=== PATIENT | female | born 1955 | race Caucasian/White ===

== ENCOUNTER 2016-06-29 18:41 | Emergency (ER) | payer MEDICAID ==
[~2016-06-29] VITALS: Ht 157.5 cm; Wt 63.5 kg
[2016-06-29 18:58] VITALS: BP 136/84; PULSE 85; RESP 18; TEMP 98.3; O2SAT 97
--- NOTE | 2016-06-29 19:53 | NUR ---
Patient to ER bed 08 to gown for evaluation. Side rails up. Report given to Mass
--- NOTE | 2016-06-29 19:55 | NUR ---
Patient arrived to ED a/o x 4 with c/o SOLORIO x 2 months. Patient reports having splitting headaches that have gradually increased in severity prompting ED visit. Reports pain 8/10. Took tylenol at home for pain management with no relief. Denies N/V. Denies blurred vision. Reports unsteady gait x 1 week with no fall. Patient appears in acute discomfort. Will continue to monitor.
--- NOTE | 2016-06-29 20:04 | NUR ---
ER REDDY Ortiz assessing pt.
[2016-06-29] MEDS ORDERED: NACL 0.9% 500 ML IV ONE (20:30)
[2016-06-29] MEDS ORDERED: MORPHINE 4 MG/ML INJ. SYRINGE IVP ONE (20:30)
[2016-06-29] MEDS ORDERED: ONDANSETRON HCL 4 MG/2 ML VIAL IVP ONE (20:30)
[2016-06-29 20:46] LABS: BASOPHILS # (AUTO) 0.1 K/uL (0.0-0.2); BASOPHILS % (AUTO) 1.1 % (0.0-2.0); EOSINOPHILS # (AUTO) 0.1 K/uL (0.0-0.4); EOSINOPHILS % (AUTO) 1.6 % (0.0-4.0); HEMATOCRIT 40.8 % (36-48); HEMOGLOBIN 13.5 g/dL (12.0-16.0); LYMPHOCYTES # (AUTO) 2.2 K/uL (1.0-5.5); LYMPHOCYTES % (AUTO) 27.2 % (20.5-51.5); MEAN CORPUSCULAR HEMOGLOBIN 28 pg (27-31); MEAN CORPUSCULAR HGB CONC 33 % (32-36); MEAN CORPUSCULAR VOLUME 85 fL (79.0-98.0); MONOCYTES # (AUTO) 0.6 K/uL (0.0-1.0); MONOCYTES % (AUTO) 7.3 % (1.7-9.3); NEUTROPHILS # (AUTO) 5.1 K/uL (1.8-7.7); NEUTROPHILS % (AUTO) 62.8 % (40.0-70.0); PLATELET COUNT (AUTO) 261 K/uL (130-430); RED BLOOD CELL COUNT(AUTO) 4.77 MIL/uL (4.2-6.2); RED CELL DISTRIBUTION WIDTH 13.2 % (9.0-15.0); WHITE BLOOD COUNT (AUTO) 8.1 K/uL (4.8-10.8)
[2016-06-29 20:57] LABS: CALCIUM 8.4 mg/dL (8.4-11.0); CREATININE 0.79 mg/dL (0.55-1.30)
[2016-06-29 21:04] LABS: TOTAL BILIRUBIN 0.1 mg/dL (0.0-1.0)
[2016-06-29 21:05] LABS: ALBUMIN 3.6 g/dL (3.4-4.8); TOTAL PROTEIN, SERUM 6.6 g/dL (6.4-8.3)
[2016-06-29] MEDS ORDERED: chlorproMAZINE HCL 50 MG/ 2 ML AMP IVP ONE (21:15)
[2016-06-29] MEDS ORDERED: DIPHENHYDRAMINE INJ 50 MG/ML VIAL IVP ONE (21:15)
[2016-06-29 21:23] LABS: BILIRUBIN,URINE NEGATIVE (NEGATIVE); BLOOD, URINE 2+ (NEGATIVE); CLARITY/URINE SL CLOUDY (CLEAR); COLOR,URINE YELLOW (YELLOW); GLUCOSE,URINE NEGATIVE (NEGATIVE); KETONES,URINE NEGATIVE (NEGATIVE); LEUKOCYTE ESTERASE ,URINE 1+ (NEGATIVE); NITRITE, URINE POSITIVE (NEGATIVE); PH,URINE 5.5 (5.0-8.0); PROTEIN URINE NEGATIVE (NEGATIVE); UROBILINOGEN,URINE 0.2 (0.2-1.0)
[2016-06-29 21:42] LABS: METHAMPHETAMINES SCREEN,URINE POSITIVE (NEG <=500)
[2016-06-29 21:43] LABS: BARBITURATE, URINE NEGATIVE (NEG <=200); BENZODIAZEPINE, URINE NEGATIVE (NEG <=150); CANNABINOID, URINE NEGATIVE (NEG <=50); COCAINE, URINE NEGATIVE (NEG <=150); OPIATE, URINE POSITIVE (NEG <=100); PHENCYCLIDINE SCREEN,URINE NEGATIVE (NEG <=25); UR TRICYCLIC ANTIDEPRESSANTS NEGATIVE (NEG <=300); URINE AMPHETAMINE POSITIVE (NEG <=500); URINE METHADONE NEGATIVE (NEG <=200); URINE OXYCODONE SCREEN NEGATIVE (NEG <=100); URINE PROPOXYPHENE SCREEN NEGATIVE (NEG <=300)
[2016-06-29 21:49] LABS: RBC,URINE 0-3 /HPF (0-3)
[2016-06-29 21:50] LABS: BACTERIA,URINE MANY /HPF (None Seen); MUCUS,URINE None Seen /LPF (None Seen); WBC,URINE 50-80 /HPF (0-3)
[2016-06-29 22:13] VITALS: BP 142/89; PULSE 80; RESP 18; TEMP 98.3; O2SAT 97
--- NOTE | 2016-06-29 22:13 | NUR ---
Patient given written and verbal discharge instructions and verbalizes understanding. ER AGRICULTURAL EDUCATION PROFESSOR discussed with patient the results and treatment provided. Patient in stable condition. ID arm band removed. IV catheter removed intact and dressing applied, no active bleeding. Rx of Macrobid and Mobic given. Patient educated on pain management and to follow up with PMD. Pain Scale 0/10. Opportunity for questions provided and answered.
== END 2016-06-29 22:13 | disposition home or self-care (01) ==
LOC: SED 18:41
DX: R51 Headache (principal); R07.89 Other chest pain; N39.0 Urinary tract infection, site not specified; F15.10 Other stimulant abuse, uncomplicated; Z88.5 Allergy status to narcotic agent
CPT/HCPCS: 36415; 70450; 71010; 80053; 80307; 81000; 84484; 85025; 87086; 93005; 96361; 96374; 96375; 99285; J1200; J2270; J2405; J3230; J7040; 87186-TC

== ENCOUNTER 2019-09-04 15:29 | Emergency (ER) | payer MEDICAID ==
[~2019-09-04] VITALS: Ht 160 cm; Wt 59.0 kg
[2019-09-04 15:45] VITALS: BP_SYST 159
[2019-09-04] MEDS ORDERED: LIDOCAINE 1% 10 MG/ML, 20 ML MDV INJ ONE (16:00)
[2019-09-04] MEDS ORDERED: IBUPROFEN 800 MG TABLET PO ONE (16:45)
[2019-09-04 16:49] VITALS: BP_SYST 142
[2019-09-04] MEDS ORDERED: BACITRACIN 1 GM OINT TP ONE (16:56)
== END 2019-09-04 16:49 | disposition home or self-care (01) ==
LOC: SED 15:29
DX: S61.52 Laceration with foreign body of wrist (principal); E07.9 Disorder of thyroid, unspecified; E87.6 Hypokalemia; Z88.5 Allergy status to narcotic agent; W26.8XXA Contact with other sharp object(s), not elsewhere classified, initial encounter; Y93.89 Activity, other specified; Y92.89 Other specified places as the place of occurrence of the external cause; Y99.8 Other external cause status
CPT/HCPCS: 12002; 99282; J2001

== ENCOUNTER 2019-09-17 11:59 | Emergency (ER) | payer MEDICAID ==
[~2019-09-17] VITALS: Ht 162.6 cm; Wt 63.5 kg
[2019-09-17 12:05] VITALS: BP_SYST 136
[2019-09-17 12:49] VITALS: BP_SYST 136
== END 2019-09-17 12:49 | disposition home or self-care (01) ==
LOC: SED 11:59
DX: S51.812D Laceration without foreign body of left forearm, subsequent encounter (principal); Z48.02 Encounter for removal of sutures; Z88.5 Allergy status to narcotic agent; W45.8XXA Other foreign body or object entering through skin, initial encounter; Y93.89 Activity, other specified; Y92.89 Other specified places as the place of occurrence of the external cause; Y99.8 Other external cause status
CPT/HCPCS: 99281

== ENCOUNTER 2021-02-01 10:24 | Emergency (ER) | payer OTHER | END 2021-02-01 12:00 | disposition left against medical advice (07) | LOC: SED 10:24 | DX: S99.929A Unspecified injury of unspecified foot, initial encounter (principal); X58.XXXA Exposure to other specified factors, initial encounter; Y93.89 Activity, other specified; Y92.89 Other specified places as the place of occurrence of the external cause; Y99.8 Other external cause status; Z53.21 Procedure and treatment not carried out due to patient leaving prior to being seen by health care provider ==

== ENCOUNTER 2021-08-26 07:54 | Emergency (ER) | payer BC, OTHER ==
[~2021-08-26] VITALS: Ht 160 cm; Wt 62.1 kg
[2021-08-26 07:55] VITALS: BP_SYST 145
[2021-08-26] MEDS ORDERED: KETOROLAC TROMETHAMINE 60 MG/2 ML VIAL IM ONE (08:15)
[2021-08-26] MEDS ORDERED: predniSONE 20 MG TABLET PO ONE (08:15)
[2021-08-26] MEDS ORDERED: predniSONE 20 MG TABLET ONE (08:32)
[2021-08-26] MEDS ORDERED: IBUP-1969 PO (09:42)
[2021-08-26] MEDS ORDERED: PRED20TA PO (09:42)
[2021-08-26 10:19] VITALS: BP_SYST 107
== END 2021-08-26 10:15 | disposition home or self-care (01) ==
LOC: SED 07:54
DX: M54.12 Radiculopathy, cervical region (principal); M25.511 Pain in right shoulder; M79.601 Pain in right arm; Z88.5 Allergy status to narcotic agent; Z79.899 Other long term (current) drug therapy
CPT/HCPCS: 99284; 72125; 93005; 76376; 96372; J7512; J1885

== ENCOUNTER 2022-01-21 09:07 | Emergency (ER) | payer BC, OTHER ==
[~2022-01-21] VITALS: Ht 157.5 cm; Wt 63.5 kg
[2022-01-21 09:07] VITALS: BP_SYST 126
[~2022-01-21 09:07] MED LIST: IBUP-1969 PO; PRED20TA PO
[2022-01-21 10:11] LABS: BASOPHILS # (AUTO) 0.1 K/uL (0.0-0.2); EOSINOPHILS # (AUTO) 0.1 K/uL (0.0-0.4); EOSINOPHILS % (AUTO) 1.3 % (0.0-4.0); HEMATOCRIT 40.7 % (36-48); HEMOGLOBIN 13.5 g/dL (12.0-16.0); LYMPHOCYTES # (AUTO) 1.7 K/uL (1.0-5.5); LYMPHOCYTES % (AUTO) 24.1 % (20.5-51.5); MEAN CORPUSCULAR HEMOGLOBIN 28 pg (27-31); MEAN CORPUSCULAR HGB CONC 33 % (32-36); MEAN CORPUSCULAR VOLUME 85 fL (79.0-98.0); MONOCYTES # (AUTO) 0.6 K/uL (0.0-1.0); NEUTROPHILS # (AUTO) 4.6 K/uL (1.8-7.7); NEUTROPHILS % (AUTO) 65.6 % (40.0-70.0); PLATELET COUNT (AUTO) 273 K/uL (130-430); RED BLOOD CELL COUNT(AUTO) 4.77 MIL/uL (4.2-6.2); RED CELL DISTRIBUTION WIDTH 13.8 % (9.0-15.0); WHITE BLOOD COUNT (AUTO) 6.9 K/uL (4.8-10.8)
[2022-01-21 10:24] LABS: ANION GAP 8 (5-15); CALCIUM 9.2 mg/dL (8.4-11.0); CHLORIDE 106 mmol/L (98-107); CREATININE 0.74 mg/dL (0.55-1.30); GLUCOSE 99 mg/dL (70-99); UREA NITROGEN, BLOOD 22 mg/dL (8-21)
[2022-01-21 10:32] LABS: ALANINE AMINOTRANSFERASE 23 U/L (12-78); ALBUMIN 3.6 g/dL (3.4-4.8); ASPARTATE AMINOTRANSFERASE 18 U/L (10-37); LIPASE 88 U/L (73-393); TOTAL BILIRUBIN 0.3 mg/dL (0.0-1.0)
[2022-01-21 10:38] LABS: GFR AFRICAN AMERICAN 101 mL/min (>90)
[2022-01-21] MEDS ORDERED: LIDOINT TD (11:19)
[2022-01-21] MEDS ORDERED: LISI2.5T48 PO (11:19)
[2022-01-21 12:07] VITALS: BP_SYST 145
== END 2022-01-21 12:09 | disposition home or self-care (01) ==
LOC: SED 09:07
DX: R07.89 Other chest pain (principal); F41.9 Anxiety disorder, unspecified; I10 Essential (primary) hypertension; M75.21 Bicipital tendinitis, right shoulder; Z88.5 Allergy status to narcotic agent; Z79.899 Other long term (current) drug therapy
CPT/HCPCS: 36415; 71045; 80053; 82550; 83690; 83880; 84484; 85025; 85379; 93005; 99285

== ENCOUNTER 2022-03-09 09:42 | Emergency (ER) | payer BC, OTHER ==
[~2022-03-09] VITALS: Ht 160 cm; Wt 59.0 kg
[~2022-03-09 09:42] MED LIST changes: +LIDOINT TD; +LISI2.5T48 PO
[2022-03-09 09:50] VITALS: BP_SYST 142
--- NOTE | 2022-03-09 10:10 | NUR ---
Patient to ER bed 5 to gown for evaluation. Side rails up. Report given to MARYBETH RIVERA.
--- NOTE | 2022-03-09 10:13 | NUR ---
ER at bedside examining patient.
--- NOTE | 2022-03-09 10:14 | NUR ---
pt bib self pt states she hurt her right hand by pulling down a storage door down. pt states it happened 3 days ago and urgent care was not covered by her insurance. pt states the pain is not getting better. pt states it is a 7-8 on pain scale and it radiates under her hand to elbow. it is a sharp stabbing pain. objectively there is swelling observed to the right forearm and facial grimacing when pt moves arm. vss, even and unlabored respirations will continue to monitor.
--- NOTE | 2022-03-09 10:25 | NUR ---
pt went to xray with structural drafter
--- NOTE | 2022-03-09 10:31 | NUR ---
back from xray
[2022-03-09] MEDS ORDERED: NAPR-688 PO (10:34)
[2022-03-09 10:54] VITALS: BP_SYST 135
--- NOTE | 2022-03-09 10:55 | NUR ---
Patient given written and verbal discharge instructions and verbalizes understanding. ER MD DR Godfreycussed with patient the results and treatment provided. Patient in stable condition. ID arm band removed. Rx of NAPROXAN given. Patient educated on pain management and to follow up with PMD. Pain Scale 6/10. Opportunity for questions provided and answered. Medication side effect fact sheet provided.
== END 2022-03-09 10:54 | disposition home or self-care (01) ==
LOC: SED 09:42
DX: S63.501A Unspecified sprain of right wrist, initial encounter (principal); I10 Essential (primary) hypertension; Z88.5 Allergy status to narcotic agent; Z79.899 Other long term (current) drug therapy; W18.30XA Fall on same level, unspecified, initial encounter; Y93.89 Activity, other specified; Y92.89 Other specified places as the place of occurrence of the external cause; Y99.8 Other external cause status
CPT/HCPCS: 73090; 99283

== ENCOUNTER → 2022-04-27 | Emergency (ER) | payer MEDICARE, OTHER ==
[~2022-04-27] VITALS: Ht 160 cm; Wt 61.2 kg
[~2022-04-27] MED LIST changes: +NAPR-688 PO; +ONDA-8 TL
[2022-04-27 13:59] VITALS: BP_SYST 138
== END | disposition home or self-care (01) ==
LOC: SED 13:41
DX: S00.03XA Contusion of scalp, initial encounter (principal); I10 Essential (primary) hypertension; Z88.5 Allergy status to narcotic agent; Z79.899 Other long term (current) drug therapy; W18.2XXA Fall in (into) shower or empty bathtub, initial encounter; Y93.89 Activity, other specified; Y92.89 Other specified places as the place of occurrence of the external cause; Y99.8 Other external cause status
CPT/HCPCS: 70450-TC; 76376; 99284

== ENCOUNTER 2022-07-20 07:59 | Emergency (ER) | payer BC, OTHER ==
[~2022-07-20] VITALS: Ht 162.6 cm; Wt 66.2 kg
[~2022-07-20 07:59] MED LIST changes: +ACET-2634 PO; +DICL20GE TP; +NAPR-1172 PO
[2022-07-20 08:11] VITALS: BP_SYST 141
[2022-07-20] MEDS ORDERED: PRED50TA PO (08:17)
[2022-07-20] MEDS ORDERED: CETI10CA PO (08:17)
[2022-07-20] MEDS ORDERED: CEPH-548 PO (08:17)
== END 2022-07-20 08:51 | disposition home or self-care (01) ==
LOC: SED 07:59
DX: S30.861A Insect bite (nonvenomous) of abdominal wall, initial encounter (principal); R07.9 Chest pain, unspecified; I10 Essential (primary) hypertension; Z88.5 Allergy status to narcotic agent; Z79.899 Other long term (current) drug therapy; W57.XXXA Bitten or stung by nonvenomous insect and other nonvenomous arthropods, initial encounter; Y93.89 Activity, other specified; Y92.89 Other specified places as the place of occurrence of the external cause; Y99.8 Other external cause status
CPT/HCPCS: 93005; 99283

== ENCOUNTER 2022-07-22 12:32 | Emergency (ER) | payer BC, OTHER ==
[~2022-07-22] VITALS: Ht 167.6 cm; Wt 70.8 kg
[~2022-07-22 12:32] MED LIST changes: +CEPH-548 PO; +CETI10CA PO; +PRED50TA PO
[2022-07-22 12:44] VITALS: BP_SYST 157
--- NOTE | 2022-07-22 12:45 | NUR ---
Pt bib self from home. chief complaint insect bite to right upper quadrant. Pt complains of heat and tender to touch. point of entry visible surrounded by pinkness. Pt is aaox3, afebrile, with 8/10 pain to site. Pt states spider bit abdomen 2 days ago and has been taking ABX regimine.
--- NOTE | 2022-07-22 12:57 | NUR ---
Note undone in EDM - 07/22/22 at 1259 by ANIRUDH Patient given written and verbal discharge instructions and verbalizes understanding. ER discussed with patient the results and treatment provided. Patient in stable condition. ID arm band removed. IV catheter removed intact and dressing applied, no active bleeding. Rx of Ativan given. Patient educated on pain management and to follow up with PMD. Opportunity for questions provided and answered. Medication side effect fact sheet provided.
--- NOTE | 2022-07-22 12:59 | NUR ---
ER at bedside examining patient. Ultra sound.
[2022-07-22] MEDS ORDERED: LORazepam 2 MG/ML VIAL IM ONE (13:00)
[2022-07-22] MEDS ORDERED: LIDOCAINE PF 1%, 20 MG/2 ML AMP INJ ONE (13:00)
--- NOTE | 2022-07-22 13:15 | NUR ---
EMT SET UP FOR INCISION PROCEDURE. PT MEDICATED FOR ANXIETY PER PT REQUEST. PT GIVEN COMFORT MEASURES AND REPOSITIONED, RESTING CALMLY.
[2022-07-22] MEDS ORDERED: SULF1TAB48 PO (13:37)
[2022-07-22] MEDS ORDERED: TRAM50TA2 PO (13:37)
--- NOTE | 2022-07-22 13:37 | NUR ---
Abscess incised and drained. Pt tolerated procedure moderately.
[2022-07-22] MEDS ORDERED: KETOROLAC TROMETHAMINE 60 MG/2 ML VIAL IM ONE (13:45)
--- NOTE | 2022-07-22 13:51 | NUR ---
Patient given written and verbal discharge instructions and verbalizes understanding. ER MD discussed with patient the results and treatment provided. Patient in stable condition. ID arm band removed. Rx of ULTRAM AND BACTRIM given. Patient educated on pain management and to follow up with PMD. Opportunity for questions provided and answered. Medication side effect fact sheet provided.
[2022-07-22 13:52] VITALS: BP_SYST 157
== END 2022-07-22 13:51 | disposition home or self-care (01) ==
LOC: SED 12:32
DX: L02.211 Cutaneous abscess of abdominal wall (principal); R10.31 Right lower quadrant pain; I10 Essential (primary) hypertension; Z88.5 Allergy status to narcotic agent; Z79.899 Other long term (current) drug therapy
CPT/HCPCS: 99284; 10060; 96372; J1885; J2001; J2060

== ENCOUNTER 2022-12-09 17:53 | Emergency (ER) | payer BC, MEDICAID ==
[~2022-12-09] VITALS: Ht 157.5 cm; Wt 61.2 kg
[~2022-12-09 17:53] MED LIST changes: +SULF1TAB48 PO; +TRAM50TA2 PO
[2022-12-09 17:55] VITALS: BP_SYST 162; PULSE 89; RESP 19; TEMP 98; O2SAT 98
== END 2022-12-09 19:12 | disposition left against medical advice (07) ==
LOC: SED 17:53
DX: R10.9 Unspecified abdominal pain (principal); R11.2 Nausea with vomiting, unspecified; I10 Essential (primary) hypertension; Z88.5 Allergy status to narcotic agent; Z79.899 Other long term (current) drug therapy
CPT/HCPCS: 99283

== ENCOUNTER 2022-12-24 09:44 | Inpatient (IN) | payer BC, MEDICAID ==
[~2022-12-24] VITALS: Ht 160 cm; Wt 60.8 kg
[2022-12-24 09:55] VITALS: BP_SYST 134; PULSE 126; RESP 20; TEMP 97; O2SAT 98
[2022-12-24] MEDS ORDERED: KETOROLAC TROMETHAMINE 30 MG VIAL IVP ONE (10:15)
[2022-12-24] MEDS ORDERED: ONDANSETRON HCL 4 MG/2 ML VIAL IVP ONE (10:15)
[2022-12-24] MEDS ORDERED: NACL 0.9% 1,000 ML IV ONE (10:15)
[2022-12-24 10:34] LABS: BASOPHILS # (AUTO) 0.2 K/uL (0.0-0.2); BASOPHILS % (AUTO) 1.2 % (0.0-2.0); EOSINOPHILS # (AUTO) 0.1 K/uL (0.0-0.4); EOSINOPHILS % (AUTO) 0.3 % (0.0-4.0); HEMATOCRIT 36.1 % (36-48); HEMOGLOBIN 11.6 g/dL (12.0-16.0); LYMPHOCYTES # (AUTO) 2.3 K/uL (1.0-5.5); LYMPHOCYTES % (AUTO) 12.4 % (20.5-51.5); MEAN CORPUSCULAR HEMOGLOBIN 27 pg (27-31); MEAN CORPUSCULAR HGB CONC 32 % (32-36); MEAN CORPUSCULAR VOLUME 84 fL (79.0-98.0); MONOCYTES # (AUTO) 1.8 K/uL (0.0-1.0); MONOCYTES % (AUTO) 9.5 % (1.7-9.3); NEUTROPHILS # (AUTO) 14.2 K/uL (1.8-7.7); NEUTROPHILS % (AUTO) 76.6 % (40.0-70.0); PLATELET COUNT (AUTO) 535 K/uL (130-430); RED BLOOD CELL COUNT(AUTO) 4.31 MIL/uL (4.2-6.2); RED CELL DISTRIBUTION WIDTH 14.8 % (9.0-15.0); WHITE BLOOD COUNT (AUTO) 18.5 K/uL (4.8-10.8)
[2022-12-24] MEDS ORDERED: MORPHINE 4 MG INJ. 4 MG/ML VIAL IVP ONE (11:00)
[2022-12-24 11:04] LABS: CREATININE 1.27 mg/dL (0.55-1.30); POTASSIUM 3.9 mmol/L (3.5-5.1)
[2022-12-24 11:09] LABS: ALBUMIN 2.8 g/dL (3.4-4.8); BILIRUBIN,DIRECT 0.1 mg/dL (0.0-0.3); TOTAL BILIRUBIN 0.4 mg/dL (0.0-1.0); TOTAL PROTEIN, SERUM 6.5 g/dL (6.4-8.3)
[2022-12-24 11:19] LABS: BILIRUBIN,URINE NEGATIVE (NEGATIVE); CLARITY/URINE CLEAR (CLEAR); COLOR,URINE YELLOW (YELLOW); GLUCOSE,URINE NEGATIVE (NEGATIVE); KETONES,URINE NEGATIVE (NEGATIVE); LEUKOCYTE ESTERASE ,URINE 1+ (NEGATIVE); NITRITE, URINE NEGATIVE (NEGATIVE); PROTEIN URINE NEGATIVE (NEGATIVE); UROBILINOGEN,URINE 0.2 (0.2-1.0)
[2022-12-24 11:22] LABS: BLOOD, URINE TRACE (NEGATIVE)
[2022-12-24 11:40] LABS: BACTERIA,URINE FEW /HPF (None Seen); RBC,URINE 0-3 /HPF (0-3)
[2022-12-24] MEDS ORDERED: cefTRIAXone 1 GM IVPB PREMIX 50 ML IV ONE (12:00)
[2022-12-24] MEDS ORDERED: CEPH-548 PO ×2 (12:20)
[2022-12-24] MEDS ORDERED: TRAM50TA2 PO ×2 (12:20)
[2022-12-24] MEDS ORDERED: HYDROcodone/ACETAMIN 5-325 MG TAB (NORCO/ VICODIN) PO PRN (13:45)
[2022-12-24] MEDS ORDERED: ONDANSETRON HCL 4 MG/2 ML VIAL IVP PRN (13:45)
[2022-12-24] MEDS ORDERED: ACETAMINOPHEN 325 MG TABLET PO PRN (13:45)
[2022-12-24] MEDS ORDERED: PIPERACILLIN/TAZOBACTAM 3.375 GM/VIAL (ZOSYN) IV ONE ×3 (14:13→22:26)
[2022-12-24] MEDS: PIPERACILLIN/TAZO 3.375 GM in NS 50 ML IV SCH ×2 (14:14→22:45)
[2022-12-24] MEDS: NACL 0.9% 1,000 ML IV SCH ×2 (14:14→22:46)
[2022-12-24] MEDS: MORPHINE 2 MG/ML INJ. SYRINGE IVP PRN (17:13)
[2022-12-24 18:33] VITALS: BP_SYST 127; PULSE 107; RESP 18; TEMP 98.9
[2022-12-24] MEDS ORDERED: NALOXONE HCL 0.4 MG/ML AMP (NARCAN) IVP ONE (18:45)
[2022-12-24] MEDS ORDERED: MORPHINE 2 MG/ML INJ. SYRINGE IVP ONE (18:45)
[2022-12-24 18:48] VITALS: BP_SYST 127; PULSE 107; RESP 18; TEMP 98.9; O2SAT 97
[2022-12-24 19:00] VITALS: BP_SYST 125; PULSE 102; RESP 16; TEMP 98.2; O2SAT 98
[2022-12-24] MEDS: DICYCLOMINE HCL 10 MG/5 ML SOLUTION PO SCH ×2 (19:30→21:00)
[2022-12-24] MEDS: TAMSULOSIN HCL 0.4 MG CAP PO SCH (19:30)
[2022-12-24] MEDS: lisinopriL 5 MG TABLET PO SCH (19:30)
[2022-12-24 20:00] VITALS: BP_SYST 125; PULSE 102; RESP 16; TEMP 98.2; O2SAT 98
[2022-12-25] VITALS (7 sets, daily range): BP systolic 95–142; PULSE 89–98; RESP 16–18; TEMP 97–98.1; O2SAT 94–98
[2022-12-25] MEDS: MORPHINE 2 MG/ML INJ. SYRINGE IVP PRN ×2 (03:40→20:48)
[2022-12-25] MEDS: NACL 0.9% 1,000 ML IV SCH ×3 (05:51→20:16)
[2022-12-25] MEDS: PIPERACILLIN/TAZO 3.375 GM in NS 50 ML IV SCH (05:51)
[2022-12-25 06:01] LABS: HEMOGLOBIN 10.5 g/dL (12.0-16.0); MEAN CORPUSCULAR HEMOGLOBIN 27 pg (27-31); MEAN CORPUSCULAR HGB CONC 32 % (32-36); MEAN CORPUSCULAR VOLUME 84 fL (79.0-98.0); PLATELET COUNT (AUTO) 422 K/uL (130-430); RED BLOOD CELL COUNT(AUTO) 3.93 MIL/uL (4.2-6.2); RED CELL DISTRIBUTION WIDTH 14.5 % (9.0-15.0)
[2022-12-25 06:26] LABS: ALBUMIN 2.2 g/dL (3.4-4.8); CALCIUM 8.2 mg/dL (8.4-11.0); CREATININE 1.68 mg/dL (0.55-1.30); POTASSIUM 3.3 mmol/L (3.5-5.1); TOTAL BILIRUBIN 0.3 mg/dL (0.0-1.0); TOTAL PROTEIN, SERUM 5.5 g/dL (6.4-8.3)
[2022-12-25 08:21] LABS: WHITE BLOOD COUNT (AUTO) 30.9 K/uL (4.8-10.8)
[2022-12-25] MEDS: lisinopriL 5 MG TABLET PO SCH (09:00)
[2022-12-25] MEDS: TAMSULOSIN HCL 0.4 MG CAP PO SCH (09:11)
[2022-12-25] MEDS: DICYCLOMINE HCL 10 MG CAPSULE PO SCH ×4 (09:11→21:53)
[2022-12-25] MEDS: HYDROcodone/ACETAMIN 5-325 MG TAB (NORCO/ VICODIN) PO PRN ×2 (09:20→21:53)
[2022-12-25 11:23] LABS: BAND % (MANUAL) 13 % (0-6); LYMPHOCYTES % (MANUAL) 2 % (20-46)
[2022-12-25 11:24] LABS: BASOPHILS % (MANUAL) 0 % (0-2); EOSINOPHILS % (MANUAL) 0 % (0-7); HYPOCHROMASIA 1+; MONOCYTES % (MANUAL) 2 % (0-11); PLATELET ESTIMATE ADEQUATE (ADEQUATE)
[2022-12-25] MEDS ORDERED: fentaNYL CITRATE/PF 100 MCG/2 ML AMP ONE (13:06)
[2022-12-25] MEDS ORDERED: MIDAZOLAM HCL 2 MG/2 ML VIAL (VERSED) ONE (13:07)
[2022-12-25] MEDS ORDERED: ePHEDrine sulfate 50 MG/ML VIAL ONE (13:15)
[2022-12-25] MEDS ORDERED: PHENYLEPHRINE HCL 10 MG/ML VIAL (NEOSYNEPHRINE) ONE (13:15)
[2022-12-25] MEDS ORDERED: PROPOFOL 200MG/ 20ML VIAL (DIPRIVAN) IV ONE (13:15)
[2022-12-25] MEDS ORDERED: ROCURONIUM BROMIDE 10 MG/ML (ZEMURON) ONE (13:15)
[2022-12-25] MEDS ORDERED: NS 1000 ML IV.SOLN IV ONE (13:15)
[2022-12-25] MEDS ORDERED: SUCCINYLCHOLINE CHLORIDE 20 MG/ML(QUELICIN) ONE (13:15)
[2022-12-25] MEDS ORDERED: ONDANSETRON HCL 4 MG/2 ML VIAL ONE (13:15)
[2022-12-25] MEDS ORDERED: SEVOFLURANE 15 MIN GAS INH ONE (13:15)
[2022-12-25] MEDS ORDERED: LR 1,000 ML IV.SOLN IV ONE (13:15)
[2022-12-25] MEDS ORDERED: METOCLOPRAMIDE HCL 10 MG/2 ML VIAL ONE (13:15)
[2022-12-25] MEDS ORDERED: EPINEPHrine HCL 1 MG/ML VIAL ONE (13:15)
[2022-12-25] MEDS ORDERED: iohexoL 180 mgI/mL, 20 ML VIAL IT ONE (13:43)
[2022-12-25] MEDS ORDERED: iohexoL 240 mgI/mL, 50 ML INFUS..BTL IV ONE (13:44)
[2022-12-25] MEDS ORDERED: HYDROmorphone 1 MG/ML INJ. CARTRIDGE IVP PRN (14:30)
[2022-12-25] MEDS ORDERED: NACL 0.9% 1,000 ML IV SCH (14:30)
[2022-12-25] MEDS ORDERED: ONDANSETRON HCL 4 MG/2 ML VIAL IVP PRN (14:30)
[2022-12-25] MEDS ORDERED: NALOXONE HCL 0.4 MG/ML AMP (NARCAN) IVP PRN (14:30)
[2022-12-25] MEDS ORDERED: PIPERACILLIN/TAZOBACTAM 3.375 GM/ D5W 50 ML IV ONE ×2 (16:30)
[2022-12-25 17:52] LABS: EOSINOPHILS % (AUTO) 0.1 % (0.0-4.0); HEMOGLOBIN 9.3 g/dL (12.0-16.0); LYMPHOCYTES # (AUTO) 0.7 K/uL (1.0-5.5); LYMPHOCYTES % (AUTO) 2.9 % (20.5-51.5); MEAN CORPUSCULAR HEMOGLOBIN 27 pg (27-31); MEAN CORPUSCULAR HGB CONC 32 % (32-36); MEAN CORPUSCULAR VOLUME 85 fL (79.0-98.0); MONOCYTES # (AUTO) 0.7 K/uL (0.0-1.0); NEUTROPHILS # (AUTO) 22.4 K/uL (1.8-7.7); PLATELET COUNT (AUTO) 342 K/uL (130-430); RED BLOOD CELL COUNT(AUTO) 3.43 MIL/uL (4.2-6.2); RED CELL DISTRIBUTION WIDTH 14.8 % (9.0-15.0); WHITE BLOOD COUNT (AUTO) 24.1 K/uL (4.8-10.8)
[2022-12-25 18:00] LABS: BASOPHILS # (AUTO) 0.2 K/uL (0.0-0.2)
[2022-12-25 18:11] LABS: ALBUMIN 1.9 g/dL (3.4-4.8); CALCIUM 7.2 mg/dL (8.4-11.0); CREATININE 1.63 mg/dL (0.55-1.30); POTASSIUM 3.5 mmol/L (3.5-5.1); TOTAL BILIRUBIN 0.2 mg/dL (0.0-1.0); TOTAL PROTEIN, SERUM 5.2 g/dL (6.4-8.3)
[2022-12-25] MEDS: PIPERACILLIN/TAZOBACTAM 3.375 GM/ D5W 50 ML IV SCH ×2 (22:10)
[2022-12-26 01:56] VITALS: BP_SYST 92; PULSE 87; RESP 18; TEMP 97.6; O2SAT 92
[2022-12-26] MEDS: NACL 0.9% 1,000 ML IV SCH ×3 (02:56→18:06)
[2022-12-26] MEDS: PIPERACILLIN/TAZOBACTAM 3.375 GM/ D5W 50 ML IV SCH ×6 (06:26→22:53)
[2022-12-26 07:12] LABS: BASOPHILS # (AUTO) 0.1 K/uL (0.0-0.2); BASOPHILS % (AUTO) 0.3 % (0.0-2.0); EOSINOPHILS # (AUTO) 0.1 K/uL (0.0-0.4); EOSINOPHILS % (AUTO) 0.5 % (0.0-4.0); HEMATOCRIT 27.4 % (36-48); HEMOGLOBIN 8.9 g/dL (12.0-16.0); LYMPHOCYTES # (AUTO) 1.4 K/uL (1.0-5.5); LYMPHOCYTES % (AUTO) 7.4 % (20.5-51.5); MEAN CORPUSCULAR HEMOGLOBIN 27 pg (27-31); MEAN CORPUSCULAR HGB CONC 32 % (32-36); MEAN CORPUSCULAR VOLUME 84 fL (79.0-98.0); MONOCYTES # (AUTO) 1.3 K/uL (0.0-1.0); NEUTROPHILS # (AUTO) 15.8 K/uL (1.8-7.7); NEUTROPHILS % (AUTO) 84.8 % (40.0-70.0); PLATELET COUNT (AUTO) 305 K/uL (130-430); RED BLOOD CELL COUNT(AUTO) 3.27 MIL/uL (4.2-6.2); RED CELL DISTRIBUTION WIDTH 14.7 % (9.0-15.0); WHITE BLOOD COUNT (AUTO) 18.6 K/uL (4.8-10.8)
[2022-12-26 07:42] LABS: ALBUMIN 1.8 g/dL (3.4-4.8); CALCIUM 7.7 mg/dL (8.4-11.0); CREATININE 1.69 mg/dL (0.55-1.30); POTASSIUM 3.5 mmol/L (3.5-5.1); TOTAL BILIRUBIN 0.2 mg/dL (0.0-1.0)
[2022-12-26 08:00] VITALS: BP_SYST 102; PULSE 84; RESP 18; TEMP 98.2; O2SAT 95; O2SAT 96
[2022-12-26] MEDS: lisinopriL 5 MG TABLET PO SCH (09:00)
[2022-12-26] MEDS: TAMSULOSIN HCL 0.4 MG CAP PO SCH (09:40)
[2022-12-26] MEDS: DICYCLOMINE HCL 10 MG CAPSULE PO SCH ×4 (09:40→21:00)
[2022-12-26] MEDS: MORPHINE 2 MG/ML INJ. SYRINGE IVP PRN ×2 (09:51→18:07)
[2022-12-26 12:00] VITALS: BP_SYST 99; PULSE 85; RESP 17; TEMP 98; O2SAT 97
[2022-12-26] MEDS ORDERED: MAG-AL HYDROX/SIMETH 30 ML UDC PO PRN (12:00)
[2022-12-26] MEDS ORDERED: PANTOPRAZOLE SODIUM 40 MG/VIAL (PROTONIX) IVP ONE (13:15)
[2022-12-26 13:30] VITALS: O2SAT 97
[2022-12-26 16:00] VITALS: BP_SYST 101; PULSE 83; RESP 18; TEMP 98.1; O2SAT 96
[2022-12-26 16:56] LABS: BASOPHILS # (AUTO) 0.1 K/uL (0.0-0.2); BASOPHILS % (AUTO) 0.4 % (0.0-2.0); EOSINOPHILS # (AUTO) 0.1 K/uL (0.0-0.4); EOSINOPHILS % (AUTO) 0.7 % (0.0-4.0); HEMATOCRIT 27.5 % (36-48); LYMPHOCYTES # (AUTO) 1.4 K/uL (1.0-5.5); LYMPHOCYTES % (AUTO) 8.6 % (20.5-51.5); MEAN CORPUSCULAR HEMOGLOBIN 27 pg (27-31); MEAN CORPUSCULAR HGB CONC 33 % (32-36); MEAN CORPUSCULAR VOLUME 84 fL (79.0-98.0); MONOCYTES # (AUTO) 1.3 K/uL (0.0-1.0); MONOCYTES % (AUTO) 8.1 % (1.7-9.3); NEUTROPHILS # (AUTO) 13.2 K/uL (1.8-7.7); NEUTROPHILS % (AUTO) 82.2 % (40.0-70.0); PLATELET COUNT (AUTO) 325 K/uL (130-430); RED BLOOD CELL COUNT(AUTO) 3.29 MIL/uL (4.2-6.2); RED CELL DISTRIBUTION WIDTH 14.8 % (9.0-15.0); WHITE BLOOD COUNT (AUTO) 16.1 K/uL (4.8-10.8)
[2022-12-26 17:13] LABS: ALBUMIN 1.8 g/dL (3.4-4.8); CALCIUM 7.5 mg/dL (8.4-11.0); CREATININE 1.69 mg/dL (0.55-1.30); POTASSIUM 3.8 mmol/L (3.5-5.1); TOTAL BILIRUBIN 0.1 mg/dL (0.0-1.0); TOTAL PROTEIN, SERUM 5.3 g/dL (6.4-8.3)
[2022-12-26 20:00] VITALS: BP_SYST 100; PULSE 93; RESP 18; TEMP 100; O2SAT 91
[2022-12-27 04:30] LABS: BASOPHILS # (AUTO) 0.1 K/uL (0.0-0.2); BASOPHILS % (AUTO) 0.7 % (0.0-2.0); EOSINOPHILS # (AUTO) 0.1 K/uL (0.0-0.4); EOSINOPHILS % (AUTO) 0.6 % (0.0-4.0); HEMATOCRIT 27.6 % (36-48); HEMOGLOBIN 9.1 g/dL (12.0-16.0); LYMPHOCYTES # (AUTO) 1.4 K/uL (1.0-5.5); LYMPHOCYTES % (AUTO) 10.2 % (20.5-51.5); MEAN CORPUSCULAR HEMOGLOBIN 27 pg (27-31); MEAN CORPUSCULAR HGB CONC 33 % (32-36); MEAN CORPUSCULAR VOLUME 83 fL (79.0-98.0); MONOCYTES # (AUTO) 1.1 K/uL (0.0-1.0); MONOCYTES % (AUTO) 8.4 % (1.7-9.3); NEUTROPHILS # (AUTO) 10.7 K/uL (1.8-7.7); NEUTROPHILS % (AUTO) 80.1 % (40.0-70.0); PLATELET COUNT (AUTO) 368 K/uL (130-430); RED BLOOD CELL COUNT(AUTO) 3.33 MIL/uL (4.2-6.2); WHITE BLOOD COUNT (AUTO) 13.4 K/uL (4.8-10.8)
[2022-12-27 04:49] LABS: ALBUMIN 1.8 g/dL (3.4-4.8); CREATININE 1.41 mg/dL (0.55-1.30); POTASSIUM 3.6 mmol/L (3.5-5.1); TOTAL BILIRUBIN 0.2 mg/dL (0.0-1.0); TOTAL PROTEIN, SERUM 5.1 g/dL (6.4-8.3)
[2022-12-27] MEDS: PIPERACILLIN/TAZOBACTAM 3.375 GM/ D5W 50 ML IV SCH ×2 (05:37)
[2022-12-27] MEDS: NACL 0.9% 1,000 ML IV SCH (05:38)
[2022-12-27 08:00] VITALS: BP_SYST 154; PULSE 81; RESP 16; TEMP 98.4; O2SAT 92
[2022-12-27] MEDS ORDERED: ALBUMIN HUMAN 25% 50 ML IV ONE (10:00)
[2022-12-27] MEDS: lisinopriL 5 MG TABLET PO SCH (11:48)
[2022-12-27] MEDS: DICYCLOMINE HCL 10 MG CAPSULE PO SCH ×4 (11:49→21:00)
[2022-12-27] MEDS: TAMSULOSIN HCL 0.4 MG CAP PO SCH (11:50)
[2022-12-27 12:00] VITALS: BP_SYST 156; PULSE 76; RESP 18; TEMP 98.6; O2SAT 96
[2022-12-27] MEDS: PANTOPRAZOLE SODIUM 40 MG/VIAL (PROTONIX) IVP SCH (12:01)
[2022-12-27 20:00] VITALS: BP_SYST 131; PULSE 76; RESP 18; TEMP 98.5; O2SAT 92
[2022-12-27] MEDS: NORMAL SALINE 5 ML DISP.SYRIN IVF SCH (22:00)
[2022-12-28] MEDS: NORMAL SALINE 5 ML DISP.SYRIN IVF SCH (05:34)
[2022-12-28 05:51] LABS: CALCIUM 8.3 mg/dL (8.4-11.0); CREATININE 1.21 mg/dL (0.55-1.30); POTASSIUM 3.1 mmol/L (3.5-5.1)
[2022-12-28] MEDS ORDERED: KCL 20 mEq in 100 mL (PREMIX) 200 ML IV ONE (07:15)
[2022-12-28 07:25] LABS: BASOPHILS # (AUTO) 0.1 K/uL (0.0-0.2); BASOPHILS % (AUTO) 1.2 % (0.0-2.0); EOSINOPHILS # (AUTO) 0.1 K/uL (0.0-0.4); HEMATOCRIT 31.3 % (36-48); HEMOGLOBIN 10.2 g/dL (12.0-16.0); LYMPHOCYTES # (AUTO) 1.4 K/uL (1.0-5.5); LYMPHOCYTES % (AUTO) 13.1 % (20.5-51.5); MEAN CORPUSCULAR HEMOGLOBIN 27 pg (27-31); MEAN CORPUSCULAR HGB CONC 33 % (32-36); MEAN CORPUSCULAR VOLUME 83 fL (79.0-98.0); MONOCYTES % (AUTO) 9.2 % (1.7-9.3); NEUTROPHILS # (AUTO) 8.2 K/uL (1.8-7.7); NEUTROPHILS % (AUTO) 75.5 % (40.0-70.0); PLATELET COUNT (AUTO) 394 K/uL (130-430); RED BLOOD CELL COUNT(AUTO) 3.78 MIL/uL (4.2-6.2); RED CELL DISTRIBUTION WIDTH 15.1 % (9.0-15.0); WHITE BLOOD COUNT (AUTO) 10.9 K/uL (4.8-10.8)
[2022-12-28 08:00] VITALS: BP_SYST 143; PULSE 76; RESP 16; TEMP 98.3; O2SAT 96
[2022-12-28] MEDS: TAMSULOSIN HCL 0.4 MG CAP PO SCH (08:23)
[2022-12-28] MEDS: lisinopriL 5 MG TABLET PO SCH (08:23)
[2022-12-28] MEDS: PANTOPRAZOLE SODIUM 40 MG/VIAL (PROTONIX) IVP SCH (08:24)
[2022-12-28] MEDS: DICYCLOMINE HCL 10 MG CAPSULE PO SCH ×2 (08:24→12:53)
[2022-12-28] MEDS ORDERED: POTASSIUM CHLORIDE 20 MEQ/PKT PACKET PO ONE (10:45)
[2022-12-28 10:54] VITALS: BP_SYST 143; PULSE 76; O2SAT 96
[2022-12-28] MEDS ORDERED: CEPH250C PO (11:55)
[2022-12-28] MEDS ORDERED: HYDR-3698 PO (11:57)
[2022-12-28 12:00] VITALS: BP_SYST 166; PULSE 69; RESP 16; TEMP 98.7; O2SAT 96
[2022-12-28] MEDS ORDERED: cloNIDine HCL 0.1 MG TABLET PO ONE (12:45)
[2022-12-28 13:06] VITALS: BP_SYST 128; PULSE 69; RESP 16; TEMP 98.7; O2SAT 96
[2022-12-28] MEDS ORDERED: FLU VACC QS2023-24(6MOS UP)/PF 0.5 ML/SYR SYRINGE I.M. ONE (13:30)
== END 2022-12-28 16:12 | disposition home or self-care (01) | DRG 660 ==
LOC: SED 09:44 → SMU 13:23 → STU 12-25 15:21 → SMU 12-28 13:28
PROVIDERS: ADMIT Family Medicine; ATTEND Family Medicine
PROC: 0T778DZ Dilation of Left Ureter with Intraluminal Device, Via Natural or Artificial Opening Endoscopic (ICD-10-PCS; principal; 2022-12-25 13:24)
DX: N13.6 Pyonephrosis (principal); E44.1 Mild protein-calorie malnutrition; K57.32 Diverticulitis of large intestine without perforation or abscess without bleeding; N17.9 Acute kidney failure, unspecified; D75.839 Thrombocytosis, unspecified; N28.1 Cyst of kidney, acquired; E86.0 Dehydration; M47.816 Spondylosis without myelopathy or radiculopathy, lumbar region; I10 Essential (primary) hypertension; B96.20 Unspecified Escherichia coli [E. coli] as the cause of diseases classified elsewhere; Z88.5 Allergy status to narcotic agent; Z79.899 Other long term (current) drug therapy; Z79.1 Long term (current) use of non-steroidal anti-inflammatories (NSAID); Z68.23 Body mass index [BMI] 23.0-23.9, adult
CPT/HCPCS: 36415; 71045; 76000; 76376; 76770; 80048; 80053; 80076; 81000; 81001; 81015; 83037; 83690; 85007; 85025; 85027; 87040; 87081; 87086; 94010; 96361; 96365; 96375; 99285; C1769; C2625; C9113; G0378; J0171; J0330; J0696; J1885; J2270; J2370; J2405; J2543; J2704; J2765; J3010; J3465; J3480; J7030; J7060; J7120; P9046; Q9965; Q9966

== ENCOUNTER 2023-01-22 12:41 | Emergency (ER) | payer BC, MEDICAID ==
[~2023-01-22 12:41] MED LIST changes: -CEPH-548 PO; +CEPH250C PO; +HYDR-3698 PO; -NAPR-1172 PO; -PRED20TA PO; -PRED50TA PO; -SULF1TAB48 PO; -TRAM50TA2 PO
[2023-01-22] MEDS ORDERED: HYDR-3917 PO (16:26)
[2023-01-22] MEDS ORDERED: CEPH-548 PO (16:26)
== END 2023-01-22 13:20 | disposition left against medical advice (07) ==
LOC: SED 12:41
DX: S61.011D Laceration without foreign body of right thumb without damage to nail, subsequent encounter (principal); Z53.21 Procedure and treatment not carried out due to patient leaving prior to being seen by health care provider; X58.XXXD Exposure to other specified factors, subsequent encounter

== ENCOUNTER 2023-01-22 15:27 | Emergency (ER) | payer BC, MEDICAID ==
[~2023-01-22] VITALS: Ht 157.5 cm; Wt 52.2 kg
[2023-01-22 15:46] VITALS: BP_SYST 160; PULSE 87; RESP 19; TEMP 98; O2SAT 99
[2023-01-22] MEDS ORDERED: DIPHTH,PERTUSS(ACELL),TET VAC 0.5 ML VIAL (Tdap) I.M. ONE (16:00)
[2023-01-22] MEDS ORDERED: cephALEXin 500 MG CAPSULE PO ONE (16:00)
[2023-01-22] MEDS ORDERED: HYDR-3917 PO (16:26)
[2023-01-22] MEDS ORDERED: CEPH-548 PO (16:26)
[2023-01-22 16:39] VITALS: BP_SYST 160; PULSE 87; RESP 19; TEMP 98; O2SAT 99
== END 2023-01-22 16:39 | disposition home or self-care (01) ==
LOC: SED 15:27
DX: S61.217A Laceration without foreign body of left little finger without damage to nail, initial encounter (principal); I10 Essential (primary) hypertension; Z88.5 Allergy status to narcotic agent; Z79.899 Other long term (current) drug therapy; W26.0XXA Contact with knife, initial encounter; Y93.89 Activity, other specified; Y92.89 Other specified places as the place of occurrence of the external cause; Y99.8 Other external cause status
CPT/HCPCS: 90715; 99283

== ENCOUNTER 2023-09-06 11:03 | Emergency (ER) | payer BC, MEDICAID ==
[~2023-09-06] VITALS: Ht 160 cm; Wt 59.0 kg
[~2023-09-06 11:03] MED LIST changes: +CEPH-548 PO; +HYDR-3917 PO
[2023-09-06 11:09] VITALS: BP_SYST 137; PULSE 80; RESP 18; TEMP 97; O2SAT 97
[2023-09-06] MEDS: fentaNYL CITRATE/PF 100 MCG/2 ML AMP IVP ONE ×2 (11:23→12:08)
[2023-09-06] MEDS ORDERED: TRAM50TA2 PO (11:45)
[2023-09-06] MEDS: MORPHINE 4 MG INJ. 4 MG/ML VIAL IVP ONE (12:47)
[2023-09-06 13:20] VITALS: BP_SYST 120; PULSE 66; RESP 12; O2SAT 94
[2023-09-06] MEDS: DIPHENHYDRAMINE INJ 50 MG/ML VIAL IVP ONE (14:09)
== END 2023-09-06 13:20 | disposition home or self-care (01) ==
LOC: SED 11:03
DX: S62.101A Fracture of unspecified carpal bone, right wrist, initial encounter for closed fracture (principal); I10 Essential (primary) hypertension; E03.9 Hypothyroidism, unspecified; Z88.5 Allergy status to narcotic agent; Z79.899 Other long term (current) drug therapy; Z79.2 Long term (current) use of antibiotics; W01.0XXA Fall on same level from slipping, tripping and stumbling without subsequent striking against object, initial encounter; Y93.89 Activity, other specified; Y92.89 Other specified places as the place of occurrence of the external cause; Y99.8 Other external cause status
CPT/HCPCS: 99284; 96374; 96375; 73110; 29125; 96376; J1200; J3010; J2270